=== PATIENT | male | born 1955 | race Caucasian/White ===

== ENCOUNTER 2024-08-13 15:58 | Outpatient (CLI) | payer MEDICARE, SELFPAY ==
--- NOTE | ~2024-08-13 | XR_ITS ---
Left Knee Technique: AP, lateral, and sunrise views were obtained. Clinical History: Pain Findings: No fracture or dislocation is seen. Osseous alignment is anatomic. There is mild medial com partment narrowing with probable subchondral cystic change in the medial tibial plateau the joint sandra e.. There is enthesopathic change at the quadriceps tendon insertion and patellar tendon origin. No j oint effusion is seen. Impression: No acute abnormality. Chronic changes, as above. Reviewed, dictated and finalized at location M. [place] RECEIVING CLERK Impression: No acute abnormality. Chronic changes, as above.
== END 2024-08-13 15:59 | disposition home or self-care (01) ==
LOC: MICIMG 16:04
PROVIDERS: PCP Nurse Practitioner Family; Visit Provider Nurse Practitioner Family
DX: M25.562 Pain in left knee (principal)
CPT/HCPCS: 73564